=== PATIENT | male | born 1960 | race Caucasian/White ===

== ENCOUNTER 2020-02-14 10:36 | Emergency (ER) | payer MEDICAID, OTHER ==
[~2020-02-14 10:36] MED LIST: Sodium Chloride 0.9% 10 ML Syringe FLUSH PRN
[2020-02-14] MEDS ORDERED: Aspirin 81 MG Tab.Chew PO ONE (11:06)
[2020-02-14 11:20] LABS: PTT,PARTIAL THROMBOPLSTIN TIME 22.7 SEC (22.0-34.0)
--- NOTE | 2020-02-14 11:25 | EDM.PDOC ---
Scribed by Esthela Hernandez 02/14/20 1053 for Nemo Juárez MD ED HPI GENERAL MEDICAL PROBLEM - General Chief Complaint: Neuro Symptoms/Deficits Stated Complaint: stroke code Time Seen by Provider: 02/14/20 10:39 Source of Information: Reports: Patient, EMS, EMS Notes Reviewed, RN, RN Notes Reviewed History Limitations: Reports: No Limitations - History of Present Illness INITIAL COMMENTS - FREE TEXT/NARRATIVE: Patient arrives to ER by [facility] with report of waking this morning at 0930HRS with right facial droop, slurred speech, weakness with numbness and tingling in the right arm and leg. Pt states he could not walk. Pt lives alone, last known well uncertain, he last spoke with another person yesterday afternoon or evening. He went to bed around midnight last night feeling "well and normal". He woke around 0730HRS this morning to urinate at which time he walked and moved his arms normally, but doesn't recall face appearance and didn't speak. Prior to arrival to the ER symptoms began to resolve. Hx of tobacco smoking. PMHx of chronic neck pain. FMHx: brother with multiple strokes. Onset: Unknown/Unsure Onset Date: 02/14/20 (woke with symptoms, last known well at midnight.) Duration: Improving Location: Reports: Face, Upper Extremity, Right, Lower Extremity, Right Quality: Reports: Other (Numbness, tingling, weakness, slurred speech; Denies pain.) Severity: Severe Improves with: Reports: None Worsens with: Reports: None Associated Symptoms: Reports: No Other Symptoms Head Pain Score (Numeric/FACES): 4 - Related Data Allergies Allergy/AdvReac Type Severity Reaction Status Date / Time No Known Allergies Allergy Verified 02/14/20 10:49 Home Meds: Home Meds Cyclobenzaprine [Flexeril] 10 mg PO TID PRN 02/14/20 [History] Omeprazole 40 mg PO DAILY 02/14/20 [History] SUMAtriptan [Imitrex] 50 mg PO DAILY PRN 02/14/20 [History] Zolpidem [Ambien] 10 mg PO BEDTIME PRN 02/14/20 [History] oxyCODONE ER [OxyCONTIN] 10 mg PO TID PRN 02/14/20 [History] Past Medical History Cardiovascular History: Reports: High Cholesterol Respiratory History: Reports: Other (See Below) (Tobacco dependence) Gastrointestinal History: Reports: GERD Musculoskeletal History: Reports: Neck Pain, Chronic Neurological History: Reports: Migraines Social & Family History - Family History Neurological: Reports: CVA (Brother with multiple strokes.) - Tobacco Use Smoking Status *Q: Current Every Day Smoker Tobacco Use Within Last Twelve Months: Cigarettes Packs/Tins Daily: 0.5 - Living Situation & Occupation Living situation: Reports: Alone Occupation: Employed ED ROS GENERAL - Review of Systems Review Of Systems: Comprehensive ROS is negative, except as noted in HPI. ED EXAM, NEURO - Physical Exam Exam: See Below Exam Limited By: No Limitations General Appearance: Alert, WD/WN, No Apparent Distress Eye Exam: Bilateral Eye: EOMI, Normal Inspection, PERRL Ears: Normal External Exam, Hearing Grossly Normal Nose: Normal Inspection, Normal Mucosa, No Blood Throat/Mouth: Normal Inspection, Normal Lips, Normal Oropharynx, Normal Voice, No Airway Compromise, Other (Chronic dental decay) Head Exam: Atraumatic, Normocephalic Neck: Normal Inspection, Supple, Non-Tender, Full Range of Motion Respiratory/Chest: No Respiratory Distress, Lungs Clear, Normal Breath Sounds, No Accessory Muscle Use, Chest Non-Tender Cardiovascular: Normal Peripheral Pulses, Regular Rate, Rhythm, No Edema GI/Abdominal: Normal Bowel Sounds, Soft, Non-Tender, No Organomegaly, No Distention, No Abnormal Bruit, No Mass (Male) Exam: Deferred Rectal (Males) Exam: Deferred Neurological: Alert, Normal Mood/Affect, Normal Dorsiflexion, CN II-XII Intact, Normal Plantar Flexion, Normal Gait, Normal Reflexes, No Motor/Sensory Deficits , Oriented x 3, Other (NIH Score: 0) Back Exam: Normal Inspection, Full Range of Motion Extremities: Normal Inspection, Normal Range of Motion, Non-Tender, No Pedal Edema, Normal Capillary Refill Psychiatric: Normal Affect, Normal Mood Skin Exam: Warm, Dry, Intact, Normal Color, No Rash EKG INTERPRETATION EKG Date: 02/14/20 Time: 10:49 Rhythm: Other (sinus rhythm) Rate (Beats/Min): 80 [place]: Normal P-Wave: Present QRS: Normal ST-T: Normal QT: Normal Comparison: NA - No Prior EKG Course - Vital Signs Last Recorded V/S: Last Vital Signs Temp 97.8 F 02/14/20 10:45 Pulse 81 02/14/20 10:45 Resp 16 02/14/20 10:45 BP 146/87 H 02/14/20 10:53 Pulse Ox 99 02/14/20 10:45 - Orders/Labs/Meds Orders: Active Orders 24 hr Category Date Time Status Blood Glucose Check, Bedside [RC] ONETIME Care 02/14/20 10:28 Active EKG 12 Lead [EKG Documentation Completion] [RC] STAT Care 02/14/20 10:27 Active NIH Stroke Scale [RC] ASDIRECTED Care 02/14/20 10:33 Active Peripheral IV Care [RC] . DIRECTED Care 02/14/20 10:29 Active Chest 1V Frontal [CR] Stat Exams 02/14/20 10:27 Taken Head wo Cont [CT] Stat Exams 02/14/20 10:25 Taken COMPREHENSIVE METABOLIC PN,CMP [CHEM] Stat Lab 02/14/20 10:48 Received DRUG SCREEN URINE BIORAD [URCHEM] Stat Lab 02/14/20 10:28 Ordered ETHANOL BLOOD MEDICAL [CHEM] Stat Lab 02/14/20 10:48 Received INR,PT,PROTHROMBIN TIME [COAG] Stat Lab 02/14/20 10:48 Received LACTIC ACID [CHEM] Stat Lab 02/14/20 10:48 Received MAGNESIUM [CHEM] Stat Lab 02/14/20 10:48 Received PTT,PARTIAL THROMBOPLSTIN TIME [COAG] Stat Lab 02/14/20 10:48 Received TROPONIN I [CHEM] Stat Lab 02/14/20 10:48 Received TSH ULTRASENSITIVE [CHEM] Stat Lab 02/14/20 10:48 Received UA RFX HAILEY AND CULT IF INDIC [URIN] Stat Lab 02/14/20 10:28 Ordered Sodium Chloride 0.9% [Saline Flush] Med 02/14/20 10:28 Active 10 ml FLUSH ASDIRECTED PRN Peripheral IV Insertion Adult [OM.PC] Stat Oth 02/14/20 10:27 Ordered Medication Orders Sodium Chloride (Saline Flush) 10 ml FLUSH ASDIRECTED PRN PRN Reason: Keep Vein Open Last Admin: 02/14/20 11:03 Dose: 10 ml Labs: Laboratory Tests 02/14/20 Range/Units 10:48 WBC 8.9 (5.0-10.0) 10^3/uL RBC 4.56 L (4.6-6.2) 10^6/uL Hgb 15.0 (14.0-18.0) g/dL Hct 42.8 (40.0-54.0) % MCV 93.9 (80-100) fL MCH 32.9 (27.0-34.0) pg MCHC 35.0 (33.0-35.0) g/dL Plt Count 255 (150-450) 10^3/uL Neut % (Auto) 49.1 (42.2-75.2) % Lymph % (Auto) 39.6 (20.5-50.1) % [place] % (Auto) 8.2 H (2-8) % Eos % (Auto) 2.5 (1.0-3.0) % Baso % (Auto) 0.6 (0.0-1.0) % Meds: Medications Generic Name Dose Route Start Last Admin Trade Name Freq PRN Reason Stop Dose Admin Sodium Chloride 10 ml 02/14/20 10:28 02/14/20 11:03 Saline Flush FLUSH 10 ml ASDIRECTED PRN Administration Keep Vein Open Discontinued Medications Generic Name Dose Route Start Last Admin Trade Name Freq PRN Reason Stop Dose Admin Aspirin 324 mg 02/14/20 11:06 02/14/20 11:11 Aspirin PO 02/14/20 11:07 324 mg ONETIME ONE Administration - Radiology Interpretation Free Text/Narrative:: [facility] Final Radiology Report Call: [phone] assistance Online chat: [email or web address] Name: IKE DE LA GARZA Age: 59Years M Date: 02/14/2020 SSN: -- : 1960 Study: CT HEAD WO Requesting Physician: NEMO JUÁREZ Images: 146 Addl Studies: Provided Clinical History: Contrast: Without Contrast Medium: Contrast Amount: Contrast Method: Page 1 of 2 PROCEDURE INFORMATION: Exam: CT Head Without Contrast Exam date and time: 02/14/2020 10:36 AM Age: 59 years old Clinical indication: Other: Stroke code, slurred speech, right sided weakness TECHNIQUE: Imaging protocol: Computed tomography of the head without contrast. Radiation optimization: All CT scans at this facility use at least one of these dose optimization techniques: automated exposure control; mA and/or kV adjustment per patient size (includes targeted exams where dose is matched to clinical indication); or iterative reconstruction. COMPARISON: No relevant prior studies available. FINDINGS: Brain: Normal. No hemorrhage. Unremarkable white matter. No mass effect. Ventricles: Normal. No ventriculomegaly. Bones/joints: Unremarkable. No acute fracture. Sinuses: Visualized sinuses are unremarkable. No fluid levels. Mastoid air cells: Visualized mastoid air cells are well aerated. Soft tissues: Unremarkable. Vasculature: Intracranial atherosclerotic vascular calcifications are noted. IMPRESSION: No CT evidence for acute intracranial abnormality. ASSESSMENT: ASPECTS ([place] Stroke Program Early CT Score) is 10. COMMENTS: IKE DE LA GARZA | Final Radiology Report CONFIDENTIALITY STATEMENT This report is intended only for use by the referring physician, and only in accordance with law. If you received this in error, call [phone]. Page 2 of 2 Early cerebral infarct may be CT occult in the first 12 hours. Thank you for allowing us to participate in the care of your patient. Dictated and Authenticated by: Juvenal Johnson MD 02/14/2020 10:52 AM Central Time ([place]) [facility] Final Radiology Report Call: [phone] assistance Online chat: [email or web address] Name: IKE DE LA GARZA Age: 59Years M Date: 02/14/2020 SSN: -- : 1960 Study: XR CHEST 1 VIEW FRONTAL Requesting Physician: NEMO JUÁREZ Images: 1 Addl Studies: Provided Clinical History: Contrast: Contrast Medium: Contrast Amount: Contrast Method: CONFIDENTIALITY STATEMENT This report is intended only for use by the referring physician, and only in accordance with law. If you received this in error, call [phone]. Page 1 of 1 PROCEDURE INFORMATION: Exam: XR Chest, 1 View Exam date and time: 02/14/2020 10:32 AM Age: 59 years old Clinical indication: Other: Stroke code, slurred speech, right sided weakness TECHNIQUE: Imaging protocol: XR of the chest Views: 1 view. COMPARISON: No relevant prior studies available. FINDINGS: Lungs: Unremarkable. No consolidation. Pleural space: Unremarkable. No pleural effusion. No pneumothorax. Heart/Mediastinum: Unremarkable. No cardiomegaly. Vasculature: The aorta is mildly tortuous. Bones/joints: Degenerative changes involve the spine. IMPRESSION: No evidence for acute pulmonary disease. Thank you for allowing us to participate in the care of your patient. Dictated and Authenticated by: Juvenal Johnson MD 02/14/2020 10:47 AM Central Time ([place]) - Re-Assessments/Exams Free Text/Narrative Re-Assessment/Exam: 02/14/20 11:05 Pt's symptoms have completely resolved, putting him the TIA category. With Hx of uncontrolled hyperlipidemia, uncertain BP Hx, being a tobacco smoker with strong family Hx of CVA, I think it is reasonable to transfer the pt to [facility] for further CVD/CVA/TIA evaluation. I consulted Dr. Jarod Smith via [facility] , and he kindly accepts the pt as a transfer. Pt will be transferred by ground ambulance ALS transfer. Departure - Departure Time of Disposition: 11:24 Disposition: DC/Tfer to Acute Hospital 02 Condition: Serious Clinical Impression: TIA (transient ischemic attack) - Discharge Information *PRESCRIPTION DRUG MONITORING PROGRAM REVIEWED*: No *COPY OF PRESCRIPTION DRUG MONITORING REPORT IN PATIENT TOMASA: No Forms: ED Department Discharge, Interfacility Transfer EMTALA Sepsis Event Note - Focused Exam Vital Signs: Vital Signs Temp Pulse Resp BP Pulse Ox 02/14/20 10:53 146/87 H 02/14/20 10:45 97.8 F 81 16 99 Date Exam was Performed: 02/14/20 Time Exam was Performed: 11:19 - My Orders Last 24 Hours: My Active Orders 02/14/20 10:25 Head wo Cont [CT] Stat 02/14/20 10:27 EKG 12 Lead [EKG Documentation Completion] [RC] STAT Chest 1V Frontal [CR] Stat Peripheral IV Insertion Adult [OM.PC] Stat 02/14/20 10:28 Blood Glucose Check, Bedside [RC] ONETIME DRUG SCREEN URINE BIORAD [URCHEM] Stat UA RFX HAILEY AND CULT IF INDIC [URIN] Stat Sodium Chloride 0.9% [Saline Flush] 10 ml FLUSH ASDIRECTED PRN 02/14/20 10:29 Peripheral IV Care [RC] . DIRECTED 02/14/20 10:33 NIH Stroke Scale [RC] ASDIRECTED 02/14/20 10:48 COMPREHENSIVE METABOLIC PN,CMP [CHEM] Stat ETHANOL BLOOD MEDICAL [CHEM] Stat INR,PT,PROTHROMBIN TIME [COAG] Stat LACTIC ACID [CHEM] Stat MAGNESIUM [CHEM] Stat PTT,PARTIAL THROMBOPLSTIN TIME [COAG] Stat TROPONIN I [CHEM] Stat TSH ULTRASENSITIVE [CHEM] Stat - Assessment/Plan Last 24 Hours: My Active Orders 02/14/20 10:25 Head wo Cont [CT] Stat 02/14/20 10:27 EKG 12 Lead [EKG Documentation Completion] [RC] STAT Chest 1V Frontal [CR] Stat Peripheral IV Insertion Adult [OM.PC] Stat 02/14/20 10:28 Blood Glucose Check, Bedside [RC] ONETIME DRUG SCREEN URINE BIORAD [URCHEM] Stat UA RFX HAILEY AND CULT IF INDIC [URIN] Stat Sodium Chloride 0.9% [Saline Flush] 10 ml FLUSH ASDIRECTED PRN 02/14/20 10:29 Peripheral IV Care [RC] . DIRECTED 02/14/20 10:33 NIH Stroke Scale [RC] ASDIRECTED 02/14/20 10:48 COMPREHENSIVE METABOLIC PN,CMP [CHEM] Stat ETHANOL BLOOD MEDICAL [CHEM] Stat INR,PT,PROTHROMBIN TIME [COAG] Stat LACTIC ACID [CHEM] Stat MAGNESIUM [CHEM] Stat PTT,PARTIAL THROMBOPLSTIN TIME [COAG] Stat TROPONIN I [CHEM] Stat TSH ULTRASENSITIVE [CHEM] Stat I have read and agree with the documentation that has been completed regarding this visit. By signing this record, I attest that the documentation was completed in my physical presence and is an accurate record of the encounter.
[2020-02-14 11:26] LABS: ANION GAP 13.8 mEq/L (7-13); CHLORIDE,CL 103 mmol/L (98-107); SODIUM,NA 140 mmol/L (136-145)
== END 2020-02-14 12:00 ==
LOC: DL.ED 10:36
DX: G45.9 Transient cerebral ischemic attack, unspecified (principal); F17.210 Nicotine dependence, cigarettes, uncomplicated; K21.9 Gastro-esophageal reflux disease without esophagitis; Z79.899 Other long term (current) drug therapy
CPT/HCPCS: 36415; 70450; 71045; 80053; 80305-QW; 80307; 81003; 82962; 83605; 83735; 84443; 84484; 85025; 85610; 85730; 93005; 99285-25; A9270-GY

== ENCOUNTER 2020-04-18 05:33 | Day surgery (SDC) | payer MEDICAID ==
[~2020-04-18 05:33] MED LIST changes: +Dextrose 5%-0.45% NaCl 1,000 ML IV SCH
[2020-04-18] MEDS ORDERED: Propofol 200 MG/20 ML SDV IV ONE (05:34)
--- NOTE | 2020-04-18 07:43 | OR ---
DATE: 04/18/2020 PROCEDURE: Esophageal dilatation. INSTRUMENT USED: Pascual bougie dilator, [place] size 48. PREMEDICATIONS: Done after EGD. INDICATION: Peptic esophageal stricture. DETAILS OF PROCEDURE: The dilator was passed with ease and no blood was noted at dilated tip after completion of the procedure. IMPRESSION: Peptic esophageal stricture. The patient tolerated the procedure well. [facility] /[id number]
--- NOTE | 2020-04-18 07:44 | OR ---
DATE: 04/18/2020 PROCEDURE: Esophagogastroduodenoscopy and multiple pinch biopsies. INSTRUMENT USED: [id number]-[id number] Olympus video panendoscope. PREMEDICATIONS: No oral or topical anesthesia used. Propofol provided by [facility]. INDICATION: Esophagogastroduodenoscopy is performed for detection of any active erosive lesions, Mclean esophagus and/or malignancy also under consideration, H. pylori status to be determined, esophageal dilatations if indicated, endoscopic hemostasis therapy if needed. PROCEDURE IN DETAIL: The scope was passed with ease. Adequate visualization of the esophagus was made from proximal to distal areas. No upper esophageal lesions identified. No uphill or downhill esophageal varices. No Tamie-Sandoval tear. No evidence of erosive changes by [place] criteria. No esophageal polyp or tumor mass identified. There was some stricture of the distal esophagus, but the tip of the scope was passed with ease to visualize the gastric mucosa. NBI views were obtained and photographs were taken of the distal esophagus. No uphill or downhill esophageal varices. No Tamie-Sandoval tear. No evidence of gastric ulcer, malignancy, or vascular ectasia. Duodenal bulb showed no ulcer. Visualized 2nd part of the duodenum was unremarkable. There was some scattered food material noted. Multiple pinch biopsies were taken from the gastric antrum and proximal body and sent for histopathology if PyloriTek is negative in an hour. No bleeding was noted from any of the visualized areas at the completion of examination. Photographs were taken of duodenal bulb, gastric, antrum, fundus, and distal esophagus. IMPRESSION: Peptic esophageal stricture. The patient tolerated the procedure well. [facility] /[id number]
--- NOTE | 2020-04-18 11:44 | LETTER ---
04/18/2020 Dianna Benites NP [address] [id number] RE: RAHAT BARTON : 1960 Dear Ms. Benites: Mr. Rahat Davalos had esophagogastroduodenoscopy and esophageal dilatation done today, tolerated the procedure well. I herewith send a copy of the endoscopy note and photographs for your review. Thank you. Sincerely, [facility] /[id number]
== END 2020-04-18 08:57 | disposition home or self-care (01) ==
LOC: DL.ENDO 05:33
PROVIDERS: ATTEND Internal Medicine Gastroenterology
DX: K22.2 Esophageal obstruction (principal); K31.9 Disease of stomach and duodenum, unspecified; I10 Essential (primary) hypertension; F11.20 Opioid dependence, uncomplicated; M19.90 Unspecified osteoarthritis, unspecified site; G89.4 Chronic pain syndrome; F41.1 Generalized anxiety disorder; R51 Headache; E78.5 Hyperlipidemia, unspecified; F17.210 Nicotine dependence, cigarettes, uncomplicated; G47.00 Insomnia, unspecified; Z88.8 Allergy status to other drugs, medicaments and biological substances; Z98.890 Other specified postprocedural states; Z86.73 Personal history of transient ischemic attack (TIA), and cerebral infarction without residual deficits
CPT/HCPCS: 43239; 43450; 87077; J2704; J7042; 43220